=== PATIENT | female | born 1995 | race Caucasian/White ===

== ENCOUNTER 2023-12-12 21:52 | Emergency (ER) | payer OTHER, SELFPAY ==
[2023-12-12 21:54] VITALS: BP 125/81
--- NOTE | 2023-12-13 01:12 | ED.GENMED ---
History of Present Illness
General
Chief Complaint: Skin Problem
Source: patient and spouse
Exam Limitations: none
Time Seen by Provider: 12/12/23 23:31
Nursing documentation reviewed up to this point in time: agreed with
History of Present Illness
History of Present Illness:
28-year-old female who presented to the emergency department today with concerns of an abscess to the right axilla worsening over the past few days history of MRSA. Denies additional concerns.
Review of Systems
Review of Systems
Allergies reviewed?: Yes
All Other Systems: ROS reviewed and negative except as documented in HPI and ROS
Phy Exam
Physical Exam
Physical Exam:
GENERAL: Alert , in no apparent distress
EYE: pupils equal and reactive
NECK: Supple, no significant adenopathy.
ENT: o/p clr, mmm.
CARDIAC: Regular rate and rhythm .
LUNGS: Clear breath sounds bilaterally, no acute respiratory distress, no wheezes/rales/rhonchi
ABDOMEN: Soft, without focal tenderness, no r/g, no cvat
NEUROLOGICAL: Alert and oriented, no focal neuro deficits
SKIN: Swelling redness warmth to the right axilla just inferior to the armpit region roughly 5 cm in diameter with central induration and fluctuance no spontaneous drainage warm and dry, skin intact.
MUSCULOSKELETAL: No edema, well perfused.
PSYCH: Normal and appropriate interaction.
Course
Orders/Labs/Results
Orders:
Orders
12/13/23 01:10
Sulfamethox./Trimethoprim Ds [Bactrim Ds 800 mg/160 mg] 2 tablet PO NOW STA
Vital Signs
Initial and Last Documented VS:
Initial Vital Signs
Temp Pulse Resp BP Pulse Ox
98.2 F 86 20 125/81 99
12/12/23 21:54 12/12/23 21:54 12/12/23 21:54 12/12/23 21:54 12/12/23 21:54
Last Documented Vital Signs
Temp Pulse Resp BP Pulse Ox
98.2 F 86 20 125/81 99
12/12/23 21:54 12/12/23 21:54 12/12/23 21:54 12/12/23 21:54 12/12/23 21:54
Procedures
Incision/Drainage/Joint Aspiration
Right axilla:
Anethesia: 1% Lidocaine with Epi
Preparation: cleaned with alcohol wipe
Type of procedure: incise and drain
Nature of site: abscess
Description of abscess: greater than 3cm
Loculations broken up: Yes
How much fluid was obtained?: small amount
Fluid description: purulent
Treatment: left open for drainage
MDM/Problems Addressed
MDM/Problems Addressed:
28-year-old female presenting to the emergency department today with concerns of right-sided axillary abscess. This was incised and drained with small mount of purulent drainage placed on MRSA eradication protocol otherwise advised to keep the area
clean covered and given return precautions.
*Critical Care Note
Total Time (30-74mins, 75-104mins- exclusive of procedures): Not Applicable
ED Attending Note
-
Portions of this chart may have been created with voice recognition software.� Occasional wrong word or��sound alike� substitutions may have occurred due to the inherent limitations of voice recognition software.
Discharge Plan
Departure
Patient Disposition: Home (Routine Discharge)
Date of Disposition: 12/13/23
Time of Disposition: 01:15
Patient with high blood pressure during this ER visit?: No
Condition: Good
Covid-19: Not Applicable
Discharge Problem:
Abscess
Instructions: Skin Abscess
Prescriptions:
New
sulfamethoxazole-trimethoprim [Bactrim DS] 800-160 mg tablet
1 tab PO BID 5 Days Qty: 10 0RF
mupirocin 2 % ointment
1 applic topical BID Qty: 15 0RF
Referrals:
[facility],Lucy Senia, DO [Family Provider] -
Activity Restrictions/Additional Instructions:
You came to the emergency department today with concerns of an abscess to your right armpit region. This was drained here with an incision and drainage. Please use warm compresses to the area to help facilitate ongoing drainage and take the
prescribed medications over the next 5 days to reduce risk of recurrence. Return to the emergency worsening, new or concerning symptoms.
Interventions
Interventions:
*Risk Screen - Suicide Last Done: 12/12/23 21:54
*General Assessment Last Done: 12/12/23 21:54
*Neglect/Abuse Screening Last Done: 12/12/23 21:54
Discharge Date and Time
Print Language: BURUNDIAN
[2023-12-13] MEDS: BACTRIM DS 800 MG/160 MG 2 TABLET PO (01:27)
[2023-12-13 01:34] VITALS: BP 118/79
== END 2023-12-13 01:36 | disposition home or self-care (01) ==
LOC: EMR 21:52
PROVIDERS: EMERGENCY PHYSICIAN Emergency Medicine; FAMILY PHYSICIAN Student in an Organized Health Care Education/Training Program
DX: L02.411 Cutaneous abscess of right axilla (principal); Z86.14 Personal history of Methicillin resistant Staphylococcus aureus infection
CPT/HCPCS: 99283; 10060

== ENCOUNTER 2024-01-15 19:57 | Emergency (ER) | payer SELFPAY ==
[2024-01-15 20:01] VITALS: BP 114/79
[2024-01-15 20:50] VITALS: BMI 30.6
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
[2024-01-15] MEDS: TYLENOL 1000 MG PO (21:24)
[2024-01-15 21:41] LABS: HCG, Urine Qualitative Screen Negative
[2024-01-15 22:25] VITALS: BP 121/82
== END 2024-01-15 22:26 | disposition home or self-care (01) ==
LOC: EMR 19:57
PROVIDERS: Nurse Practitioner; EMERGENCY PHYSICIAN Emergency Medicine; FAMILY PHYSICIAN Family Medicine
DX: S13.4XXA Sprain of ligaments of cervical spine, initial encounter (principal); V89.2XXA Person injured in unspecified motor-vehicle accident, traffic, initial encounter
CPT/HCPCS: 99284; 70450; 72125; 81025

== ENCOUNTER 2024-02-24 19:52 | Emergency (ER) | payer OTHER, SELFPAY ==
[2024-02-24 20:08] VITALS: BP 120/80
--- NOTE | 2024-02-24 20:41 | ED.GENMED ---
History of Present Illness
General
Chief Complaint: Headache
Source: patient
Exam Limitations: none
Time Seen by Provider: 02/24/24 20:14
Nursing documentation reviewed up to this point in time: agreed with
History of Present Illness
History of Present Illness:
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
headache is worse with coughing, and moving her head,
Past History
Past History
ED Past Medical History: Other (Mixed connective tissue disorder not on treatment)
ED Past Surgical History: Orthopedic
Social History
Tobacco: Non-smoker
Alcohol: Occasional
Drug: None
Living: with family
Employment: Employed
Review of Systems
Review of Systems
All Other Systems: Not applicable
Constitutional: Reports fever and fatigue
EENT: Reports mouth pain
Respiratory: Reports cough and trouble breathing
Cardiac: Reports no symptoms
ABD/GI: Reports no symptoms
: Reports no symptoms
Musculoskeletal: Denies edema
Neurological: Reports dizzy and headache
Endocrine: Reports no symptoms
Phy Exam
Physical Exam
Physical Exam:
Physical Exam
General: Nontoxic 28-year-old
Neck: Lips are moist, no drooling, no photophobia no pain with flexion of the neck
Heart: s1/s2 regular rate and rhythm, no murmur. equal radial pulses.
Lungs: no acute respiratory distress. Rhonchi left greater than
Abdomen: Nontender
Neuro: alert and oriented. no focal neurological deficits
Skin: no rash
Psychiatric: well kept. interactive and cooperative
Extremities: no edema.
Course
Orders/Labs/Results
Orders:
Orders
02/24/24 20:38
IV Insert/Care/Rem.- Treatment PRN
0.9% Sodium Chloride 1000 ml [Nss] 1,000 ml IV BOLUS
Acetaminophen [Tylenol] 650 mg PO NOW STA
Dexamethasone Sod Phosphate [Decadron] 10 mg IV NOW STA
Ipratropium/Albuterol Sulfate [Duoneb] 3 ml INH R NOW STA
Ketorolac [Toradol] 30 mg IV NOW STA
02/24/24 20:58
COVID-19 Antigen Urgent
Source: Nasal Swab
Complete Blood Count/With Diff Urgent
Comprehensive Metabolic Panel Urgent
Influenza A+B Rapid Molecular Urgent
EMILY Source: Nasal Swab
Specimen Description:
02/24/24 21:34
CR Chest - 2 Views Urgent
Comment:
Reason For Exam: coiugh
Abnormal Lab Results
02/24/24
20:58
Hct 35.8 L %
(37.0-47.0)
Abs Immat Gran (auto) 0.1 H 10^3/uL
(0-0.05)
Immature Gran % 0.6 H %
(0-0.5)
Glucose 101 H mg/dl
(70-99)
02/24/24 20:58
02/24/24 20:58
Vital Signs
Initial and Last Documented VS:
Initial Vital Signs
Temp Pulse Resp BP Pulse Ox
97.8 F 100 22 120/80 98
02/24/24 20:08 02/24/24 20:08 02/24/24 20:08 02/24/24 20:08 02/24/24 20:08
Last Documented Vital Signs
Temp Pulse Resp BP Pulse Ox
97.8 F 100 22 120/80 98
02/24/24 20:08 02/24/24 20:08 02/24/24 20:08 02/24/24 20:08 02/24/24 20:08
MDM/Problems Addressed
Differential Diagnosis Includes:
Viral syndrome dehydration pneumonia perhaps related to lwfo-hqyf-nsd-mouth
MDM/Problems Addressed:
Headache cough fever mouth pain
Chronic conditions affecting care:
Connective tissue disorder not on treatment
Acute Exacerbation and/or Progression of Chronic Illness:
Connective tissue disorder not on treatment
*Radiology
Radiology exam reviewed: preliminary read by ED provider
*Pulse Oximetry
Patient hypoxic: no
*Telephone Station Installer Interpretation
Rate: normal
Interpretation: normal
Heart Rate: 88
Rhythm: sinus
*Critical Care Note
Total Time (30-74mins, 75-104mins- exclusive of procedures): Not Applicable
Update Note
Update Note:
Update labs noted chest x-ray noted viral swabs noted all unremarkable
1030 update patient feeling much better her neck is supple her breathing is better
Reviewed labs and x-rays with her no clear indication for antibiotics will continue steroids and nebs
ED Attending Note
-
Portions of this chart may have been created with voice recognition software.� Occasional wrong word or��sound alike� substitutions may have occurred due to the inherent limitations of voice recognition software.
Discharge Plan
Departure
Patient Disposition: Home (Routine Discharge)
Date of Disposition: 02/24/24
Time of Disposition: 22:40
Patient with high blood pressure during this ER visit?: No
Condition: Good
Discharge Problem:
Bronchitis, Headache
Instructions: Headache, Adult (DC)
Prescriptions:
New
albuterol sulfate [Proventil HFA] 90 mcg/actuation HFA aerosol inhaler
2 puff inhalation QID PRN (Reason: shortness of breath or wheezing) Qty: 8.5 0RF
methylprednisolone [Medrol (Delon)] 4 mg tablets,dose pack
See Rx Instructions .ROUTE .COMPLEX Qty: 21 0RF
Rx Instructions:
orally per package directions
No Action
sulfamethoxazole-trimethoprim [Bactrim DS] 800-160 mg tablet
1 tab PO BID 5 Days Qty: 10 0RF
mupirocin 2 % ointment
1 applic topical BID Qty: 15 0RF
Referrals:
Arsenio Posadas DO [Family Provider] - Next open appointment
Activity Restrictions/Additional Instructions:
Drink plenty of fluids
Tylenol every 4-6 hours for fever
Steroid pack as prescribed
Albuterol 2 puffs every 4-6 hours for cough or shortness of breath
Interventions
Interventions:
*Risk Screen - Suicide Last Done: 02/24/24 20:08
*Neglect/Abuse Screening Last Done: 02/24/24 20:08
ED- Fall Risk Assessment Last Done: 02/24/24 20:33
*ED COVID-19 Vaccine History Last Done: 02/24/24 20:33
ED- Neurological Assessment Last Done: 02/24/24 20:33
Discharge Date and Time
Print Language: CHILEAN
[2024-02-24] MEDS: NSS 1000 IV (20:59)
[2024-02-24] MEDS: DUONEB 3 ML INH (21:00)
[2024-02-24] MEDS: TORADOL 30 MG IV (21:00)
[2024-02-24] MEDS: DECADRON 10 MG IV (21:00)
[2024-02-24] MEDS: TYLENOL 650 MG PO (21:01)
[2024-02-24 21:10] LABS: % Basophils 0.5 % (0-2); % Eosinophils 0.7 % (0-6); % Immature Granulocytes 0.6 % (0-0.5); % Lymphocytes 29.3 % (20.5-51.1); % Monocytes 5.1 % (1.7-9.3); % Neutrophils 63.8 % (42.2-75.2); Absolute Eosinophils 0.1 10^3/uL (0-0.7); Absolute Immature Granulocytes 0.1 10^3/uL (0-0.05); Absolute Lymphocytes 2.6 10^3/uL (1.2-3.4); Absolute Monocytes 0.5 10^3/uL (0.1-0.6); Absolute Neutrophils 5.7 10^3/uL (1.4-6.5); Hematocrit 35.8 % (37.0-47.0); Hemoglobin 12.1 g/dL (12.0-16.0); Mean Corp Hgb Conc. 33.8 g/dL (33.0-37.0); Mean Corpuscular Hgb 28.1 pg (27.0-31.0); Mean Corpuscular Volume 83.1 fL (81.0-99.0); Mean Platelet Volume 9.5 fL (7.4-10.4); Nucleated Red Blood Cells % 0 %; Platelet Count 280 10^3/uL (130-400); Red Blood Cell Count 4.31 10^6/uL (4.20-5.40); Red Cell Dist. Width 12.8 % (11.5-14.5); White Blood Cell Count 8.9 10^3/uL (4.8-10.8)
[2024-02-24 21:24] LABS: ALT (SGPT) 10 U/L (0-35); AST (SGOT) 15 U/L (14-36); Albumin 3.9 g/dl (3.5-5.0); Alkaline Phosphatase 52 U/L (38-126); Blood Urea Nitrogen 11 mg/dl (7-17); Calcium 9.2 mg/dl (8.4-10.2); Carbon Dioxide 26 mmol/L (22-30); Chloride 103 mmol/L (98-107); Glucose 101 mg/dl (70-99); Potassium 3.7 mmol/L (3.5-5.1); Sodium 141 mmol/L (135-145); Total Bilirubin 0.3 mg/dl (0.2-1.3); Total Protein 6.6 g/dl (6.3-8.2); eGFR > 60.00
[2024-02-24 21:27] LABS: COVID-19 Antigen Negative (Negative)
[2024-02-24 22:52] VITALS: BP 123/70
== END 2024-02-24 23:00 | disposition home or self-care (01) ==
LOC: EMR 19:52
PROVIDERS: EMERGENCY PHYSICIAN Emergency Medicine; FAMILY PHYSICIAN Family Medicine
DX: J40 Bronchitis, not specified as acute or chronic (principal); R51.9 Headache, unspecified
CPT/HCPCS: 99283; 94640; 96374; 96375; 71046; 80053; 85025; 87502; 87811